=== PATIENT | male | born 1990 | race Native Hawaiian/Other Pacific Islander ===

== ENCOUNTER 2019-12-29 00:08 | Emergency (ER) | payer OTHER ==
[~2019-12-29] VITALS: Ht 177.8 cm; Wt 111.1 kg
[2019-12-29] MEDS ORDERED: BUPR1SUBFM SL (00:22)
[2019-12-29 01:44] VITALS: BP 176/91; TEMP 98.8
== END 2019-12-29 01:44 | disposition home or self-care (01) ==
LOC: ED 00:08
DX: S16.1XXA Strain of muscle, fascia and tendon at neck level, initial encounter (principal); S20.222A Contusion of left back wall of thorax, initial encounter; V86.59XA Driver of other special all-terrain or other off-road motor vehicle injured in nontraffic accident, initial encounter; Y92.488 Other paved roadways as the place of occurrence of the external cause
CPT/HCPCS: 99283

== ENCOUNTER 2021-02-14 21:30 | Emergency (ER) | payer OTHER ==
[~2021-02-14] VITALS: Ht 177.8 cm; Wt 111.1 kg
[~2021-02-14 21:30] MED LIST: BUPR1SUBFM SL
[2021-02-14 22:09] LABS: PLATELET COUNT 254 K/uL (142-355)
[2021-02-14 22:18] LABS: POTASSIUM 3.9 mmol/L (3.6-5.2); SODIUM 137 mmol/L (136-145)
[2021-02-14 23:00] VITALS: BP 118/78; TEMP 98.3
== END 2021-02-14 23:00 | disposition home or self-care (01) ==
LOC: ED 21:30
PROVIDERS: Family Medicine
DX: R07.89 Other chest pain (principal)
CPT/HCPCS: 80053; 82550; 82553; 83605; 84484; 85027; 93005; 99283

== ENCOUNTER 2023-03-14 09:43 | Emergency (ER) | payer OTHER ==
[~2023-03-14] VITALS: Ht 177.8 cm; Wt 104.3 kg
[2023-03-14 10:07] VITALS: BP 144/84; TEMP 97.3
== END 2023-03-14 10:07 | disposition home or self-care (01) ==
LOC: ED 09:43
DX: H66.92 Otitis media, unspecified, left ear (principal); H92.02 Otalgia, left ear; F17.210 Nicotine dependence, cigarettes, uncomplicated
CPT/HCPCS: 99283